=== PATIENT | male | born 1960 | race Caucasian/White ===

== ENCOUNTER → 2019-11-28 | Outpatient (CLI) | payer BC ==
[~2019-11-28] MED LIST: KETO10 PO; OXYACE5T PO; PROM25 PO; TAMS.4ER PO
[2019-11-28 17:58] LABS: Source, Urine Clean Catch
[2019-11-28 18:28] LABS: Bilirubin, Urine Neg (Neg); Blood, Urine 5+ (Neg); Glucose Qualitative, Urine Neg (Neg); Ketones, Urine Neg (Neg); Leukocyte Esterase, Urine 3+ (Neg); Nitrite, Urine Neg (Neg); Protein, Urine 3+ (Neg); Urobilinogen, Urine 1+ (Normal); pH, Urine 6.5 (5.0-8.0)
[2019-11-28 18:37] LABS: Appearance, Urine Bloody (Clear); Color, Urine Red (P-Yellow)
[2019-11-28 18:39] LABS: Bacteria Few /hpf; Red Blood Cells, Urine TNTC /hpf (0-2); Squamous Epithelial Cells Not Seen /hpf (Few); White Blood Cells, Urine TNTC /hpf (0-5)
== END | disposition home or self-care (01) ==
LOC: LAB 17:57 → LAB SHORT 17:57 → LAB FUT 11-27 17:45
PROVIDERS: Urology
DX: N39.0 Urinary tract infection, site not specified (principal)
CPT/HCPCS: 81001; 87086